=== PATIENT | male | born 1985 | race African-American/Black ===

== ENCOUNTER 2017-09-17 10:47 | Emergency (ER) | payer OTHER ==
[~2017-09-17] VITALS: Ht 180.3 cm; Wt 69.0 kg
[~2017-09-17 10:47] MED LIST: AMOXICILLIN 50500 M1 PO; CIPROFLOXACIN500 M1 PO; NOHOMEMEDICATIONS
[2017-09-17] MEDS ORDERED: VENTOLIN HFA 1818 GM INH (11:47)
[2017-09-17] MEDS ORDERED: PREDNISONE50 MG PO (11:47)
[2017-09-17] MEDS ORDERED: ALBUTEROL2.5 MG/31 INH (11:47)
[2017-09-17 12:07] VITALS: BP 150/90
== END 2017-09-17 12:07 | disposition home or self-care (01) ==
LOC: ER 10:47
DX: J02.0 Streptococcal pharyngitis (principal); J45.909 Unspecified asthma, uncomplicated; Z87.891 Personal history of nicotine dependence

== ENCOUNTER 2018-07-03 22:27 | Emergency (ER) | payer OTHER ==
[~2018-07-03] VITALS: Ht 180.3 cm; Wt 68.5 kg
[~2018-07-03 22:27] MED LIST changes: +ALBUTEROL2.5 MG/31 INH; +PREDNISONE50 MG PO; +VENTOLIN HFA 1818 GM INH
[2018-07-03] MEDS ORDERED: VENTOLIN HFA 1818 GM INH (23:02)
[2018-07-04 00:09] VITALS: BP 99/59
== END 2018-07-04 00:11 | disposition home or self-care (01) ==
LOC: ER 22:27
DX: R07.82 Intercostal pain (principal); M54.6 Pain in thoracic spine; M79.18 Myalgia, other site; J45.909 Unspecified asthma, uncomplicated; Z87.891 Personal history of nicotine dependence; W09.8XXA Fall on or from other playground equipment, initial encounter; Y93.44 Activity, trampolining; Y92.89 Other specified places as the place of occurrence of the external cause; Y99.8 Other external cause status

== ENCOUNTER 2019-08-03 07:34 | Emergency (ER) | payer OTHER ==
[~2019-08-03] VITALS: Ht 180.3 cm; Wt 71.7 kg
[2019-08-03 07:37] VITALS: BP 141/92
[2019-08-03] MEDS ORDERED: FLOVENT HFA12 G1 INH (07:40)
== END 2019-08-03 07:53 | disposition home or self-care (01) ==
LOC: ER 07:34
DX: J45.909 Unspecified asthma, uncomplicated (principal); F17.210 Nicotine dependence, cigarettes, uncomplicated; Z79.899 Other long term (current) drug therapy

== ENCOUNTER 2019-09-16 13:21 | Emergency (ER) | payer OTHER ==
[~2019-09-16] VITALS: Ht 180.3 cm; Wt 68.0 kg
[~2019-09-16 13:21] MED LIST changes: +FLOVENT HFA12 G1 INH
[2019-09-16 16:14] VITALS: BP 117/76
== END 2019-09-16 16:17 | disposition home or self-care (01) ==
LOC: ER 13:21
DX: S61.215A Laceration without foreign body of left ring finger without damage to nail, initial encounter (principal); J45.909 Unspecified asthma, uncomplicated; Z87.891 Personal history of nicotine dependence; W26.8XXA Contact with other sharp object(s), not elsewhere classified, initial encounter; Y93.G1 Activity, food preparation and clean up; Y92.098 Other place in other non-institutional residence as the place of occurrence of the external cause; Y99.8 Other external cause status

== ENCOUNTER 2020-03-13 18:11 | Emergency (ER) | payer OTHER ==
[~2020-03-13] VITALS: Ht 180.3 cm; Wt 74.8 kg
[2020-03-13 18:12] VITALS: BP 173/122
[2020-03-13] MEDS ORDERED: PROAIR HFA8.5 GM INH (18:22)
[2020-03-13] MEDS ORDERED: PREDNISONE 20 M20 M1 PO (19:27)
[2020-03-13] MEDS ORDERED: PROMETH-CODEIN 65 ML PO (19:27)
== END 2020-03-13 19:56 | disposition home or self-care (01) ==
LOC: ER 18:11
DX: U07.1 COVID-19 (principal); R05 Cough; J45.909 Unspecified asthma, uncomplicated; Z79.899 Other long term (current) drug therapy; Z87.891 Personal history of nicotine dependence

== ENCOUNTER 2020-12-02 15:59 | Emergency (ER) | payer OTHER ==
[~2020-12-02] VITALS: Ht 180.3 cm; Wt 75.8 kg
[~2020-12-02 15:59] MED LIST changes: +MOBIC7.5 MG PO; +PREDNISONE 20 M20 M1 PO; +PROAIR HFA8.5 GM INH; +PROMETH-CODEIN 65 ML PO
[2020-12-02 19:12] VITALS: BP 148/99
== END 2020-12-02 19:16 | disposition home or self-care (01) ==
LOC: ER 15:59
DX: M54.5 Low back pain (principal); J45.909 Unspecified asthma, uncomplicated; Z79.51 Long term (current) use of inhaled steroids; Z87.891 Personal history of nicotine dependence; V49.49XA Driver injured in collision with other motor vehicles in traffic accident, initial encounter; Y93.89 Activity, other specified; Y92.89 Other specified places as the place of occurrence of the external cause; Y99.8 Other external cause status